=== PATIENT | female | born 1940 | race Caucasian/White ===

== ENCOUNTER 2016-12-16 09:26 | Inpatient (IN) | payer MEDICARE ==
[2016-12-16 10:01] LABS: ABSOLUTE NEUTROPHIL COUNT 12.1 K/mm3 (1.8-7.7); BASO # 0.1 K/mm3 (0.0-0.2); BASO % 0.4 % (0.2-1.0); EOS # 0.2 (0.0-0.5); EOS % 1.1 % (0.9-2.9); HEMATOCRIT 34.3 % (37.0-47.0); HEMOGLOBIN 11.2 gm/l (12.0-16.0); IMM NEUT # 0.1 K/mm3 (0-0.2); IMM NEUT% 0.8 % (0-1); LYMPH # 0.8 (1.0-4.8); LYMPH % 5.6 % (15-45); MEAN CELL VOLUME 96.6 fl (81.0-99.0); MEAN CORPUSCULAR HEMOGLOBIN 31.5 pg (27.0-31.0); MEAN CORPUSCULAR HGB CONC 32.7 g/dl (33.0-37.0); MEAN PLATELET VOLUME 8.6 fl (7.4-10.4); MONO # 0.8 (0.0-0.8); MONO % 5.6 % (4-12); NEUT % 86.5 % (43-75); PLATELET COUNT 395 K/mm3 (130-400)
[2016-12-16] MEDS ORDERED: SODIUM CHLORIDE 0.9% 1,000 ML ONE (10:09)
[2016-12-16 10:19] LABS: ALB/GLOB RATIO 0.9 (>1.0); ALBUMIN 2.9 gm/dL (3.5-5.7)
[2016-12-16 10:26] LABS: CKMB ISOENZYME 2.3 ng/ml (0.6-6.3); TROPONIN I 0.68 ng/ml (0.0-0.06)
[2016-12-16] MEDS ORDERED: ASPIRIN CHEWTAB 81 MG TABLET ONE (10:28)
[2016-12-16 11:38] VITALS: BMI 24.3
[2016-12-16] MEDS ORDERED: NITROGLYCERIN 0.4 MG/TAB.SUBL BOT SL PRN (14:24)
[2016-12-16] MEDS ORDERED: MENTHOL/CETYLPYRD 1 EACH LOZENGE PO PRN (14:27)
[2016-12-16] MEDS ORDERED: BLISTEX LIPSTICK 1 EACH TP PRN (14:27)
[2016-12-16] MEDS ORDERED: MAGNESIUM HYDROXIDE 30 ML UDCUP PO PRN (14:27)
[2016-12-16] MEDS ORDERED: BISACODYL 5 MG TABLET.EC PO PRN (14:27)
[2016-12-16] MEDS ORDERED: BISACODYL 10 MG SUP PR PRN (14:27)
[2016-12-16] MEDS ORDERED: ACETAMINOPHEN 325 MG TABLET PO PRN (14:27)
[2016-12-16] MEDS ORDERED: CALCIUM CARBONATE 500 MG TAB.CHEW PO PRN (14:27)
[2016-12-16] MEDS ORDERED: DIPHENHYDRAMINE HCL 50 MG CAPSULE PO PRN (14:27)
[2016-12-16] MEDS ORDERED: SODIUM CHLORIDE 0.9% 100 ML IV PRN (14:27)
[2016-12-16 15:32] LABS: D-DIMER 1.81 mg/L FEU (0.20-0.50); INR 1.01; PARTIAL THROMBOPLASTIN TIME 23.9 SECONDS (24.5-33.0); PROTHROMBIN TIME 10.6 SECONDS (9.3-11.4)
[2016-12-16 15:34] LABS: C-REACTIVE PROTEIN 12.1 mg/dl (<1.0)
[2016-12-16 15:40] LABS: TROPONIN I 0.57 ng/ml (0.0-0.06)
[2016-12-16 15:44] LABS: THYROID STIMULATING HORMONE 6.81 uIU/ml (0.34-5.60)
[2016-12-16] MEDS ORDERED: PUMP TUBING ONE (16:12)
[2016-12-16] MEDS: ENOXAPARIN SODIUM 40 MG/0.4 ML SYRINGE SUB-Q SCH ×2 (16:50→20:51)
[2016-12-16] MEDS: SODIUM CHLORIDE 0.9% 1,000 ML IV SCH (16:51)
[2016-12-16] MEDS ORDERED: IOPAMIDOL 370 (76%) 100 ML VIAL IV ONE (17:58)
--- NOTE | 2016-12-16 18:26 | CT ---
Name: POONAM ESPINAL Exam: CT Angiogram of the chest with contrast Comparison: None Clinical History:Elevated d-dimer Procedure: Helical CT using multidetector technique was applied to the chest during rapid intravenous administration of 80 cc Isovue-370. MIP reconstructions were obtained on the CT scanner. Automated dose reduction technique was used to minimize patient radiation dose. Findings: CT angiogram of the chest (contrast enhanced): Heart is nonenlarged. There is no pericardial effusion. Aorta is minimally atherosclerotic and normal caliber. There is normal 3 great vessel arrangement. Injection is made via the right. Thyroid gland is poorly imaged. There is no suspicious axillary, mediastinal or hilar adenopathy on this noncontrast exam. Large airways are clear. There is no pulmonary embolus. Multiple subcentimeter poorly marginated nodules are noted within the lungs in these are primarily in the upper lobes, right greater than left. Differential considerations include atypical pneumonia silicosis and is similar metallic pneumonia. Ankylosing spondylitis, cystic fibrosis, sarcoid and TB are thought less likely given the appearance of the remainder of the chest. Pulmonary vasculature is mildly prominent 4 early infiltrate is a consideration as well. There is no pleural effusion or pneumothorax. There is no dominant mass. Regional skeleton is within normal limits. There is been prior cervical spine surgery. Structures below the diaphragm included on this exam are within normal limits. Impression: 1. No pulmonary embolus 2. Subcentimeter poorly marginated nodules primarily in the upper lobes. Infectious process is favored. Please see above comments. 3. Mild vascular congestion Note:The above report was uploaded to [facility]'s electronic medical records system at 1821 hours.
[2016-12-16 19:10] LABS: URINE BILIRUBIN NEGATIVE (NEGATIVE); URINE BLOOD 4+ (NEGATIVE); URINE GLUCOSE (UA) NEGATIVE (NEGATIVE); URINE LEUKOCYTE ESTERASE NEGATIVE (NEGATIVE); URINE NITRITE NEGATIVE (NEGATIVE); URINE PROTEIN TRACE (NEGATIVE); URINE UROBILINOGEN NORMAL (0-1 mg/dl)
[2016-12-16 19:11] LABS: URINE APPEARANCE CLEAR; URINE COLOR YELLOW
[2016-12-16 19:21] LABS: URINE EPITHELIAL CELLS 0-2 /hpf
[2016-12-16 19:22] LABS: URINE BACTERIA FEW
[2016-12-16] MEDS: PREDNISONE 5 MG TABLET PO SCH (20:50)
--- NOTE | 2016-12-16 21:45 | PDOC36 ---
Provider Note Note: [id number] Dict Elevated troponin TEMI nonproductive cough night sweats ROJAS Fatigue Generalized weakness Immune suppression Prolong corticosteroid use RA
[2016-12-16] MEDS ORDERED: DIPHENHYDRAMINE HCL 25 MG CAPSULE PO PRN (22:40)
[2016-12-17 06:32] LABS: ABSOLUTE NEUTROPHIL COUNT 9.7 K/mm3 (1.8-7.7); BASO # 0.1 K/mm3 (0.0-0.2); BASO % 0.5 % (0.2-1.0); EOS # 0.3 (0.0-0.5); HEMATOCRIT 32.3 % (37.0-47.0); HEMOGLOBIN 10.1 gm/l (12.0-16.0); IMM NEUT # 0.1 K/mm3 (0-0.2); IMM NEUT% 0.7 % (0-1); LYMPH # 1.5 (1.0-4.8); LYMPH % 12.2 % (15-45); MEAN CELL VOLUME 98.2 fl (81.0-99.0); MEAN CORPUSCULAR HEMOGLOBIN 30.7 pg (27.0-31.0); MEAN CORPUSCULAR HGB CONC 31.3 g/dl (33.0-37.0); MEAN PLATELET VOLUME 8.3 fl (7.4-10.4); MONO # 0.9 (0.0-0.8); MONO % 7.5 % (4-12); NEUT % 77.1 % (43-75); PLATELET COUNT 363 K/mm3 (130-400); RED CELL DISTRIBUTION WIDTH 13.2 % (11.5-14.5)
[2016-12-17] MEDS: SODIUM CHLORIDE 0.9% 1,000 ML IV SCH (06:55)
[2016-12-17] MEDS ORDERED: POTASSIUM CHLORIDE 20 MEQ TAB.PRT.SR PO ONE (07:21)
[2016-12-17] MEDS ORDERED: LEVOTHYROXINE SODIUM 75 MCG TABLET PO SCH (07:30)
[2016-12-17] MEDS ORDERED: LEVOTHYROXINE SODIUM 100 MCG TABLET PO SCH (07:30)
--- NOTE | 2016-12-17 08:19 | HP ---
POONAM ESPINAL [id number] DATE OF : 1940 DATE OF SERVICE: 12/16/2016 CHIEF COMPLAINT: Generalized weakness and fatigue. HISTORY OF PRESENT ILLNESS: Mrs. Espinal is a 76-year-old female who presents to the emergency room today at the urging of her family for progressive symptoms to include overwhelming fatigue, generalized muscle weakness, dyspnea on exertion, a dry nonproductive cough, night sweats, poor appetite and insomnia. The patient is a fair historian, however, her two daughters and are also present and contribute quite a bit to the history of present illness. Per the patient, sometime around the holidays in June she began to feel progressively fatigued, with less interest in normal day-to-day activities, decreasing appetite and decreasing exercise tolerance. Right around the first of the year she began to experience a persistent dry cough, which she continues to have, as well as recurrent flares of her rheumatoid arthritis primarily in the ankles, feet and fingers. This has prompted several emergency room visits with escalation of PO prednisone doses, as well as multiple visits to her current regional truck driver, Dr. Matthew Sommers in [place]. On further discussion, the patient relates that both her primary care physician and regional truck driver have switched within the last twelve months or so due to alf. As such, she does not currently have a prolonged, well-established primary care provider. Regarding her regional truck driver, she states that he has been trying various things to help with her rheumatoid arthritis and mentioned possibly putting her back on Remicade which she had been on in the past with good result with her previous regional truck driver. She states that he has tried so far sulfasalazine and self discontinued, as well as Plaquenil which she is currently taking and prednisone in various doses, currenlty 10 mg once a day. The sulfasalazine she quit on her own after developing several raised blister-like lesions scattered on her extremities and trunk. She was counseled to observe for rash and so stopped the medication. She has, however, continued the Plaquenil and the daily prednisone at 10 mg, but has been on higher doses of prednisone as high as 40 mg off and on over these past few months in an attempt to treat acute flares of her acute rheumatoid arthritis. She also again complains of difficulty sleeping which she relates is primarily due to pain, for which she takes a dose of Extra-Strength Tylenol at night, but she denies any use of pain medications during the day. She also admits that some of her inability to sleep seems to go with the higher doses of prednisone. On further questioning, she relates the muscle weakness to being present since starting on steroids around the first of this year. Despite her low appetite, her and her family both deny any sort of significant weight loss. The primary concern seems to be for the fatigue which has been progressing since at least the holidays and has come to the point where it really is effecting her day-to-day life. Because of fatigue and generalized muscle weakness, she is not participating in any of her usual hobbies and her observes that even with taking a shower she has to stop and rest before she finishes getting ready or when walking from her living room to the kitchen she has to stop and rest. It is his perception that it is due to shortness of breath, which she does not deny, but it is her perception it more has to do with overall overwhelming weakness and the feeling that if she did not stop to rest she might pass-out or simply have to sit down on the floor out of exhaustion. She does admit to some swelling, primarily in the joints of the hands and feet, but has had no progressive swelling in the legs themselves or at the [place]. On direct questioning she does admit to a temperature of 101 approximately two weeks ago, after which her regional truck driver gave her azithromycin for a reported abnormal chest x-ray and suspicion of community-acquired pneumonia. She states that she completed the azithromycin, however, she continues to have what she describes as night sweats and chills, but has not subsequently checked her temperature. She denies any chest pain whatsoever, any history of coronary problems or congestive heart failure, any history of pulmonary problems or any personal history of malignancy. She states that she is up-to-date with her mammogram and is due this coming month, and that she had a colonoscopy approximately five years ago. She admits to several breast biopsies, but they were all benign. Neither her nor her family can pin-down a particular change in her health, medications or circumstances that occurred in June or July when it seems most of these symptoms did occur, however, she does state that she has been on Plaquenil for her rheumatoid arthritis for somewhere between eight to twelve months. REVIEW OF SYSTEMS: As per HPI. All other systems reviewed and acutely negative. PAST MEDICAL/SURGICAL HISTORY: 1. The patient had a tonsillectomy and adenoidectomy as a child. 2. 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 3. She has had rheumatoid arthritis since 2009, with prior history of Remicade, prolonged use of steroids and recent history of Plaquenil and sulfasalazine. 4. She has hypothyroidism, on levothyroxine replacement. 5. She has been noted to have Raynaud's phenomenon in her digits. 6. She has had degenerative disk disease, particularly of the cervical spine, with fusions of C4, C5, C6 and C7. 7. She has had three biopsies of the breasts, all with benign disease. 8. A transfer of a left thumb ligament. FAMILY HISTORY: Noncontributory. SOCIAL HISTORY: She is . Nonsmoker and nondrinker. ALLERGIES: No known drug allergies. Intolerance to methotrexate due to GI upset. CURRENT MEDICATIONS: 1. Levothyroxine 75 mcg daily. 2. Prednisone 10 mg daily. 3. Plaquenil 300 mg daily. 4. Extra-Strength Tylenol 500 mg at bedtime as needed. PERTINENT LABS AND DIAGNOSTIC STUDIES: 1. CBC from 12/16/2016; white blood cell count 14, hemoglobin 11.2, hematocrit 34.3, MCV of 96.6 and platelet count 395. Absolute neutrophil count of 12,100. 2. PT of 10.6, PTT of 23.9 and D-dimer of 1.81. 3. Chemistry; sodium 134, potassium 3.5, chloride 100, carbon dioxide 25, anion gap 13, BUN of 22, creatinine 1.4, glucose 143, calcium 9, magnesium 2, total bilirubin 0.3, AST of 13, ALT of 13, alkaline phosphatase 61, albumin 2.9. 4. LDH of 167. 5. CK of 28, CK-MB of 2.3, troponin 0.68. 6. C-reactive protein 12.1, ESR of 73. 7. Urinalysis; 2-3 white blood cells, negative nitrate, negative leukocyte esterase, 4+ blood, trace protein, 6-8 red blood cells. 8. Imaging; CT chest angiogram from 12/16/2016 shows no pulmonary emboli. Subcentimeter poorly-marginated nodules, primarily in the upper lobe, favoring an infectious process. Mild vascular congestion. PHYSICAL EXAMINATION: VITAL SIGNS: Temperature 98.6. Pulse 87. Blood pressure 151/75. Respiratory rate 18. Satting 98% on room air. GENERAL: A well-developed and well-nourished thin elderly female in no acute distress, appearing appropriate for age. Alert and oriented times three. HEENT: Normocephalic, atraumatic. Extraocular movements are intact. Pupils equal, round and reactive to light and accommodation. NECK: No carotid bruit. No JVD. No masses. LYMPH NODES: No palpable cervical, supraclavicular, axillary or inguinal lymphadenopathy. CARDIOVASCULAR: Regular rate and rhythm. No murmur, rub or gallop. PULMONARY: Clear to auscultation bilaterally. No wheezes, rhonchi or crackles. ABDOMEN: Soft, nontender and nondistended. Normoactive bowel sounds. No masses. No palpable hepatosplenomegaly. EXTREMITIES: No cyanosis, clubbing or jevon edema. MUSCULOSKELETAL: The patient has no current palpable tenosynovitis in the joints of the hands, fingers, feet or toes. There are no joint effusions of the ankles, knees, wrists or elbows on exam. SKIN: The patient has no visible petechiae, splinter hemorrhages or nodules of the hands or feet. No vesicular lesions. No discoloration. No marked bruising. ASSESSMENT/PLAN: 1. Acute kidney injury, with hematuria. 2. Elevated troponin. 3. Generalized progressive weakness. 4. Overall failure to thrive. 5. Elevated systemic inflammatory markers, acute phase reactants. 6. Nonproductive cough, chronic. 7. Night sweats. 8. Dyspnea on exertion. 9. Prolonged steroid use. 10. Chronic immune-suppression. 11. Rheumatoid arthritis. 12. Hypothyroidism. The patient's history of present illness is suggestive of a chronic progressive process. Differential diagnosis is broad, to include cardiac etiology, pulmonary etiology, infectious process, complications of rheumatoid arthritis, medication adverse effects, depression, occult malignancy or other atypical processes such as sarcoid or similar. The elevated troponin is of unclear significance, but it should be noted that review of the records shows that approximately three years ago she had a coronary angiogram which was negative. She also does not have visibly severe coronary disease on her CT angio. She could have myocardial inflammation reflected in the troponin, however, the fact that her CK and CK-MB are unremarkable is incongruent. We will start by trending the troponin to ensure that it is trending down and obtaining an echo to assess the overall function of the heart. If these are reassuring and no significant events occur on telemetry, the patient may benefit from general risk stratification with a nuclear study. It does not seem to be the primary cause of her symptoms. The CT angio did not reveal any significant pulmonary pathology such as lymphadenopathy, jevon tumor, effusion or dense infiltrate, but she did complete a course of azithromycin within the past two weeks. The nodules described could be inflammatory in nature such as rheumatoid nodules in this setting or they could represent a chronic occult infection such as atypical mycobacterium, sarcoid or similar. These would likely require an outpatient pulmonology evaluation and possibly bronchoscopy. I do not find any evidence on exam of processes such as endocarditis given that she has no murmur, no hepatosplenomegaly, no Jan[place]ay lesions, Osler nodes, petechiae or splinter hemorrhages, however, the chronic nature of her decline, overall systemic inflammatory markers and night sweats are concerning and I have ordered a set of empiric blood cultures. I find nothing on exam, labs or imaging to indicate a jevon malignancy or secondary lymphoproliferative disorder. She is up-to-date on her routine health maintenance screening exams such as mammography and colonoscopy. Many of her symptoms sound depressive, but they apparently all began with the overwhelming fatigue which has gradually decreased her activities and ability to participate in usual activities. It is possible that her Plaquenil therapy has resulted in many of these symptoms, as Plaquenil can cause fatigue, generalized weakness, myopathies and cough, all of which fit some of her complaints. Also possible is that the prednisone has contributed to poor sleep and generalized muscle weakness. At this time we will await some of the pending tests such as culture, preliminary results, peak troponin and echocardiogram, and obtain her rheumatology practice's records in the morning. From there we will decide what more needs to be done inpatient versus further outpatient workup.
[2016-12-17] MEDS: PREDNISONE 5 MG TABLET PO SCH (08:46)
[2016-12-17] MEDS ORDERED: ASPIRIN (ENTERIC COATED) 325 MG TABLET.EC PO SCH (09:00)
--- NOTE | 2016-12-17 10:00 | PDOC43 ---
- Subjective Chief Complaint: Weakness and fatigue Subjective: Reports Pain Tolerable, Reports Tolerating Diet Well, Reports Adequate Oral Intake, Reports Urinating Without Difficulty, Denies Shortness of Breath, Denies Chest Pain, Denies Abdominal Pain, Denies Nausea, Denies Vomiting , Denies Fever, Denies Chills - Objective Vital Signs Temperature 97.6 F 12/17/16 08:31 Pulse Rate 98 12/17/16 08:31 Respiratory Rate 16 12/17/16 08:31 Blood Pressure 125/69 12/17/16 08:31 O2 Saturation by Pulse Oximetry 94 12/17/16 08:31 Oxygen Delivery Method Room Air Oxygen Flow Rate 0 Intake and Output 12/15/16 12/16/16 12/17/16 23:59 23:59 23:59 Intake Total 1771 Output Total 1500 Balance 271 General: Alert, Oriented x3, Cooperative, No Acute Distress HEENT: Atraumatic, PERRLA, EOMI, Mucous membr. moist/pink Lungs: Clear to Auscultation Bilaterally, Normal Air Movement Cardiovascular: Regular Rate and Rhythm, Normal S1, Normal S2, No Murmur Abdomen: Soft, Normal Bowel Sounds, Non-Distended, No Tenderness, No Masses Extremities: Normal Pulses, No Edema, No Tenderness Neurological: Normal Speech Psych/Mental Status: Normal Affect, Flat Affect Laboratory 12/17/16 05:30 12/17/16 12/16/16 12/16/16 05:30 20:23 15:05 RBC 3.29 L MCHC 31.3 L ESR 73 H PTT 23.9 L D-Dimer 1.81 H Troponin I 0.51 H* 0.57 H* C-Reactive Protein 12.1 H TSH 6.81 H Current Medications: Current meds reviewed in EMR. - Problems: Assessment/Plan (1) TEMI (acute kidney injury) Status: AcuteAssessment/Plan: Gentle IVF's on admit, particulary in light of CTA. Chemistry is pending this am. (2) Hematuria Status: AcuteAssessment/Plan: Microscopic. ? adverse effect of the sulfasalzine vs nephritis type picture (3) Troponin level elevated Status: AcuteAssessment/Plan: Possible supply demand due to sinus tach with exertion vs inflammation of the myocardium vs reflection of decreased GFR. Echo this am, nuclear stress test. Prior cardiac workup about 3yrs ago was unremarkable (4) Hypothyroidism Status: ChronicAssessment/Plan: Increased synthroid from 75mcg to 100mcg (5) Fatigue Qualifiers: Fatigue type: chronic, unspecified Qualifier Code: (R53.82) Chronic fatigue, unspecified Status: ChronicAssessment/Plan: Completing cardiac workup. PT/OT evaluation today. Suspect lassitude, myopathy , fatigue may be attributable to Plaquenil but completing workup to rule out other causes first. Discontinued Plaquenil. Informed patient. Noted that it can take a prolonged time to metabolize and eliminate. (6) Generalized muscle weakness Status: Chronic (7) Abnormal CT of the chest Status: AcuteAssessment/Plan: Nonspecific nodular patter of the upper lobes. May represent rheumatoid nodules , recently treated CAP or atypical infectious process. (8) ROJAS (dyspnea on exertion) Status: Chronic (9) Chronic use of steroids Status: Chronic (10) Rheumatoid arthritis Status: Chronic VTE Prophylaxis: Lovenox Disposition: 1-2 days, PT/OT pending
[2016-12-17 10:36] LABS: ALB/GLOB RATIO 0.9 (>1.0); ALBUMIN 2.7 gm/dL (3.5-5.7); CALCIUM 8.8 mg/dL (8.6-10.3); CHOLESTEROL RISK RATIO 3.4 (3.7-5.6)
[2016-12-17] MEDS: ENOXAPARIN SODIUM 40 MG/0.4 ML SYRINGE SUB-Q SCH (14:42)
[2016-12-17] MEDS ORDERED: REGADENOSON 0.1 MG DOSE IV ONE (15:12)
--- NOTE | 2016-12-17 15:20 | NUC MED ---
Indication: Abnormal EKG Comparison: None Radiopharmaceutical: 12.2 millicuries technetium 99m sestamibi at rest, 37.2 millicuries technetium 99m sestamibi at stress Findings: Multiple scintigraphic SPECT images were obtained after IV administration of radiopharmaceutical to the patient. Lexiscan protocol was used under the supervision of Dr. Posey. Patient achieved 90 percent of the maximal age predicted heart rate. Patient had no symptoms during the exam. EKG demonstrated no change. Study was terminated at the end of protocol. Scintigraphic images demonstrate normal radiotracer distribution. Wall motion is normal. Ejection fraction is 85%. Impression: Normal examination. Findings were called to Dr. Posey at approximately 1516 hours on 12/17/2016.
[2016-12-17 19:42] VITALS: BP 138/71
--- NOTE | 2016-12-18 08:32 | DS ---
Radha Wade [id number] DATE OF ADMISSION: 12/16/2016 DATE OF DISCHARGE: 12/17/2016 DISCHARGE DIAGNOSES: 1. Weakness and fatigue. 2. Failure to thrive. 3. Elevated troponin of uncertain significance. 4. Hypothyroidism with a TSH of 6.8. 5. Mild acute kidney injury with a creatinine of 1.4. 6. Suspected adverse reaction to Plaquenil. 7. Nonspecific pulmonary nodules on CTA of the chest suspect rheumatoid nodules. PROCEDURES PERFORMED DURING THE HOSPITALIZATION: Included a Lexiscan myocardial perfusion study showing normal myocardial perfusion and a normal ejection fraction of 85%. TO SUMMARIZE THE ADMISSION AND HOSPITAL COURSE: The patient is a 76-year-old female who presented with complaints of overwhelming fatigue and weakness, poor appetite and insomnia, a dry nonproductive cough. Workup in the emergency department showed evidence of an elevated creatinine of 1.4, mild leukocytosis with a white blood cell count of 14,000. An elevated troponin level of 0.57 and 0.51 respectively. She did have some elevation of her inflammatory markers of undetermined significance. She had an elevated TSH level of 6.8 prompting increase of her Synthroid dose to 100 mcg daily. During her hospital stay she was afebrile. Her oxygen saturations remained normal. She was evaluated by physical therapy and occupational therapy and felt to be safe for living at home. Following hydration overnight and negative stress test results the patient was feeling better and felt eager to go home and was felt medically stable for discharge. PHYSICAL EXAMINATION: VITALS: At discharge showed a temperature of 98.2, pulse 87, blood pressure 138/71, respirations 16, oxygen saturation 94% on room air. Body mass index 24.4, weight 64.4 kg. GENERAL: This is a well-developed, well-nourished elderly female in no acute distress. HEENT: Unremarkable. LUNGS: Clear to auscultation bilaterally. CARDIOVASCULAR: Revealed a regular rate and rhythm without a murmur. ABDOMEN: Soft, nontender, nondistended with positive bowel sounds. EXTREMITIES: No peripheral edema. LABORATORY STUDIES: On the day of discharge included a basic metabolic panel with a sodium of 142, potassium 4.0, creatinine 1.4. CBC showed a white count improving to 12.6, hemoglobin was 10.1 with a platelet count of 363,000. She does have elevated inflammatory markers including a sedimentation rate of 73 and a C-reactive protein elevated at 12.1 felt to be secondary to her rheumatoid arthritis. Her TSH level was elevated at 6.81. DISPOSITION: Home. DISCHARGE CONDITION: Good. DIET: Regular. DISCHARGE MEDICATIONS: 1. I am going to have her discontinue her hydroxychloroquine due to concerns about potential side effects. 2. I am going to increase her levothroid to 100 mcg daily. 3. She will continue prednisone 10 mg every morning. 4. Extra Strength Tylenol 500 mg at bedtime. FOLLOW UP: She has a follow up appointment with her director marketing communications next week and another follow up appointment was made with Rebecca Morris NP on December 25 at 1:30 p.m. JOB: [id number] CC: Rebecca Morris NP
== END 2016-12-17 20:33 | disposition home or self-care (01) | DRG 948 ==
LOC: ED 09:26 → UNDOADMIN 10:58 → MS 10:58
PROVIDERS: ADMIT Internal Medicine Hematology & Oncology; ATTEND Internal Medicine Hematology & Oncology
DX: R53.83 Other fatigue (principal); N17.9 Acute kidney failure, unspecified; E03.8 Other specified hypothyroidism; T37.8X5A Adverse effect of other specified systemic anti-infectives and antiparasitics, initial encounter; M06.30 Rheumatoid nodule, unspecified site; R31.9 Hematuria, unspecified; Z79.52 Long term (current) use of systemic steroids; I00 Rheumatic fever without heart involvement; R62.7 Adult failure to thrive